=== PATIENT | male | born 1965 | race Caucasian/White ===

== ENCOUNTER 2019-12-25 05:58 | Day surgery (SDC) | payer OTHER, SELFPAY ==
[2019-12-24 15:17] VITALS: BMI 28.3
[2019-12-25 06:30] LABS: Glucose Point of Care 182 mg/dL (70-110)
--- NOTE | 2019-12-25 06:36 | ECG_ITS ---
Measurements Intervals [place] Rate: 62 P: 27 IA: 167 QRS: 24 QRSD: 102 T: 1 QT: 389 QTc: 397 SINUS RHYTHM WARNING: DATA QUALITY MAY AFFECT INTERPRETATION No previous ECG available for comparison Electronically Signed On 12-25-2019 17:07:52 CDT by Ebony Boles M.D. [email or web address]
--- NOTE | 2019-12-25 06:37 | ANES.PREANE2 ---
Pre-Anesthetic Assessment Pre-Anesthetic Assessment: Height/Weight: Height 1.8 m Weight 92.079 kg Preop Diagnosis: Headaches, r/o temporal arteritis Proposed Procedure: Operation Date: 12/25/19 07:10 Proposed Procedures p Temporal Artery Biopsy(Right) - Arash Morrow MD Last intake: Intake Last Liquid Date 12/24/19 Last Liquid Time 22:00 Last Solid Date 12/24/19 Last Solid Time 18:00 Social: Packs per day: 1 Pack years: 38 Comment: quit 2y Exam: Pre-Anes Outpt Exam: alert, oriented x 3, clear to auscultation bilaterally and regular rate & rhythm Airway: Submandibular: WNL Cervical ROM: WNL MP: 2 Dentition: Partials CV/HEM: CV/HEM: HTN Comments: rx'd 8y 2 blocks/2FOS without angina/RODRIGUEZ Metabolic: Metabolic: DM Comments: rx'd 2.5y, normally 100-130 Musc/skel: Musc/skel: Lower Back Pain Comments: nonradiating Anesthetic Plan: ASA status: 3 Anesthesia: General Data Anesthesia Other Labs: Laboratory Results - last 48 hr 12/25/19 06:26 POC Glucose 182 Cardiac Studies: No Data to Display
[2019-12-25 06:59] LABS: Basophils # 0.1 10^3/uL (0.0-0.1); Basophils % 0.7 %; Eosinophils % 0.2 %; Hematocrit 47.5 % (42.0-52.0); Hemoglobin 15.8 g/dL (11.7-16.6); Lymphocytes % 7.6 %; Mean Corpuscular HGB Conc 33.3 g/dL (30.0-36.0); Mean Corpuscular Hemoglobin 29.4 pg (28.0-34.0); Mean Corpuscular Volume 88.3 fL (80-94); Mean Platelet Volume 9.4 fL (7.4-10.4); Monocytes # 0.6 10^3/uL (0.2-0.9); Monocytes % 4.5 %; Neutrophils # 10.1 10^3/uL (1.8-7.7); Nucleated Red Blood Cells % 0 %; Platelet Count 416 10^3/cmm (130-400); Red Blood Count 5.38 10^6/uL (4.1-5.3); Red Cell Distribution Width 13.5 % (12.1-15.1); White Blood Count 12.6 10^3/uL (4.0-10.0)
[2019-12-25] MEDS: midazolam 1 mg/mL INJ 2 mL 2 MG IVP (07:02)
[2019-12-25] MEDS: sodium chloride 0.9% 1,000 ML 30 ML IV (07:02)
[2019-12-25 07:04] VITALS: BP 130/83; PULSE 70; RESP 18; TEMP 36.4; O2SAT 95
[2019-12-25 07:14] LABS: Anion Gap 14.6 (5-19); Blood Urea Nitrogen 12 mg/dL (6-20); Calcium 9.1 mg/dL (8.5-10.5); Carbon Dioxide 26 mmol/L (22-29); Chloride 98 mmol/L (98-107); Glomerular Filtration Rate 87.3 mL/min (90-130); Glucose 202 mg/dL (65-115); Osmolality Calculated 280 mOsm/kg (285-295); Potassium 4.6 mmol/L (3.5-5.1); Sodium 134 mmol/L (136-145)
[2019-12-25 07:28] LABS: Neutrophils % 84.8 %; Slide Review Slide Review Perform
[2019-12-25 08:23] VITALS: BP 129/80; PULSE 83; RESP 16; TEMP 36.1; O2SAT 94
[2019-12-25 08:25] VITALS: BP 135/82; PULSE 78; RESP 14; O2SAT 93
[2019-12-25 08:30] VITALS: BP 132/79; PULSE 78; RESP 18; TEMP 36.2; O2SAT 94
--- NOTE | 2019-12-25 08:30 | W.PM.OPSFHP ---
Same Day Surgery H&P Indication for Procedure/HPI DATE OF PROCEDURE: December 25, 2019 CHIEF COMPLAINT/INDICATIONFOR SURGICAL PROCEDURE: Headache PREOP DIAGNOSIS: Headaches, r/o temporal arteritis PLANNED PROCEDRUE: Operation Date: 12/25/19 07:10 Proposed Procedures p Temporal Artery Biopsy(Right) - Arash Morrow MD Medications/Allergies* Home Medications Medication Instructions Recorded Confirmed Type amlodipine 10 mg PO QPM 12/24/19 12/25/19 History metformin 500 mg PO QPM 12/24/19 12/25/19 History methylprednisolone [Medrol (Seng)] See Rx Instructions .ROUTE .COMPLEX 12/24/19 12/25/19 History metoprolol tartrate 50 mg PO QPM 12/24/19 12/25/19 History ondansetron HCl 4 mg PO Q6H 12/24/19 12/25/19 History Allergies/Adverse Reactions Allergy/AdvReac Type Severity Reaction Status Date / Time No Known Allergies Allergy Verified 12/24/19 11:38 Current Medications: Generic Name Dose Route Start Last Admin Trade Name Freq PRN Reason Stop Dose Admin Sodium Chloride 1,000 mls @ 30 mls/hr 12/25/19 07:00 12/25/19 07:02 Sodium Chloride 0.9% IV 12/26/19 06:59 30 mls/hr .Q24H AUDREY Administration Pertinent Exam Findings clear to auscultation bilaterally and operative site marked Recommendations Surgery/Procedure today Coding Level of Care Code Acute Administrator Of Home Health for Therese Merlos
--- NOTE | 2019-12-25 08:32 | W.PM.OPSUD ---
Surgery/Procedure H&P Update DATE OF PROCEDURE: December 25, 2019 DATE H&P PERFORMED: 12/23/19 PREOP DIAGNOSIS: Headaches, r/o temporal arteritis PLANNED PROCEDURE: Operation Date: 12/25/19 07:10 Proposed Procedures p Temporal Artery Biopsy(Right) - Arash Morrow MD
--- NOTE | 2019-12-25 08:33 | PM.OP ---
Operative Report Date of procedure: December 25, 2019 Pre-op Diagnosis: Headaches, r/o temporal arteritis Post-op diagnosis: same Post-op Findings: Same Procedure Done: Open biopsy, Right Temporal Artery Implants: None Specimens removed/disposition: Right Temporal artery Pathology: Right temporal artery Surgeon: Arash Morrow Anesthesia: General Estimated blood loss (mL): 5 IV fluids (mL): 300 Complications: None Condition: stable Disposition: PACU Brief History: New onset Headache Procedure: The patient was identified in the preoperative holding area was taken to the operating where he was placed on the operative table in supine position. Anesthesia was obtained with general endotracheal anesthesia and the table was turned 90 degrees to the patient's right. The patient's right zoroastrian was shaved and was then prepped and draped in the usual sterile fashion. The Doppler ultrasound was used to cordell out the path of the right temporal artery and the area of the right temporal artery was injected with a 50-50 mix of 1% lidocaine with 1: 100,000 epinephrine and half percent Marcaine plain. A vertical incision was then made over the right temporal artery with a 15 blade and then sharp scissors were used to dissect out the temporal artery. Ligaclips were used to clip the artery inferiorly superiorly and a 4 cm section of the right temporal artery was removed. At this point hemostasis was achieved with bipolar cautery. The wound was then closed with interrupted 4-0 Monocryl sutures in the subcutaneous tissues and a running 5-0 Prolene on the skin. The procedure was then terminated and control of the patient was returned to anesthesia where he underwent an uneventful reversal of anesthesia and extubation and was taken to the recovery room in stable condition. There were no operative or anesthetic complications.
[2019-12-25 08:35] VITALS: BP 145/84; PULSE 81; RESP 18; O2SAT 93
[2019-12-25 09:00] VITALS: BP 142/93; PULSE 72; RESP 18; O2SAT 93
[2019-12-25] MEDS: ondansetron 2 mg/ML SDV 2 mL 4 MG IVP (09:21)
== END 2019-12-25 10:15 | disposition home or self-care (01) ==
PROVIDERS: Family Provider Family Medicine; PCP Family Medicine; Visit Provider Specialist
PROC: (CPT 37609; principal; 2019-12-25 07:00)
DX: R51 Headache (principal); Z79.52 Long term (current) use of systemic steroids; E11.9 Type 2 diabetes mellitus without complications; Z79.84 Long term (current) use of oral hypoglycemic drugs; Z87.891 Personal history of nicotine dependence; I10 Essential (primary) hypertension
CPT/HCPCS: 37609; 12345; 36415; 36416; 80048; 82962; 85025; 88305; 93005; 96374; 96375; J0330; J0690; J2001; J2250; J2405; J2704; J3490; J7030

== ENCOUNTER → 2020-01-04 14:19 | Outpatient (BNVA) | payer OTHER, SELFPAY | PROVIDERS: Family Provider Family Medicine; PCP Family Medicine; Visit Provider Internal Medicine Rheumatology | DX: M79.10 Myalgia, unspecified site (principal); Z98.890 Other specified postprocedural states; I10 Essential (primary) hypertension; Z79.52 Long term (current) use of systemic steroids; M19.041 Primary osteoarthritis, right hand; M19.042 Primary osteoarthritis, left hand | CPT/HCPCS: 99204 ==

== ENCOUNTER 2020-02-02 09:08 | Emergency (ER) | payer OTHER, SELFPAY ==
[2020-02-02 09:16] VITALS: BP 151/92; PULSE 94; RESP 16; TEMP 36.4; O2SAT 95; BMI 27.8
--- NOTE | 2020-02-02 09:19 | XR_ITS ---
WS: [id number] FINGER RIGHT TECHNIQUE: 3 views of the right Fourth finger CLINICAL INFORMATION: 4th COMPARISON: None. FINDINGS: Soft tissue edema. Nondisplaced fracture distal fourth phalanx. XR/XR finger RT min 2V [id number] IMPRESSION: Nondisplaced fracture distal phalanx fourth finger
--- NOTE | 2020-02-02 09:42 | ED_ITS ---
HPI - Extremity Problem General: Chief complaint: Extremity Injury, Upper Stated complaint: WC RING FINGER ON RIGHT HAND SMASHED Time Seen by Provider: 02/02/20 09:18 History of Present Illness: HPI Narrative: 54-year-old male brought in he had a crush injury to his right distal fourth finger while at work. He did this yesterday. 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 He denies any other injuries there is no laceration his tetanus is up-to-date. Associated symptoms: Deny chest pain, fever(s) or rash Review of Systems Const: Denies: fever(s), chills, body aches, change in appetite, fatigue or malaise ENMT: Denies: throat pain, ear or mastoid pain, nasal discharge or nasal congestion Card: Denies: chest pain, edema, dyspnea on exertion or orthopnea Resp: Denies: dyspnea, productive cough or non-productive cough GI: Denies: abdominal pain, nausea, vomiting, hematemesis, coffee ground emesis, diarrhea, constipation, bloating, hematochezia or melena : Denies: flank pain, dysuria, urinary frequency or urinary urgency Skin/Breast: Denies: rash or pruritus PFSH ED PFSH: Medical History Chronic steroid use HTN (hypertension), benign Myalgia Surgical History History of temporal artery biopsy Family History Other Hypertension Denies family history of Rheumatoid arthritis Diabetes CAD (coronary artery disease) Systemic lupus erythematosus (SLE) in adult Cancer Stroke Social History Smoking and tobacco status: former smoker Alcohol intake: never History of recent travel: No Physical Exam Const: COMMON NORMALS: no acute distress GENERAL APPEARANCE: cooperative and comfortable ORIENTATION/CONSCIOUSNESS: Yes awake, Yes oriented to person, Yes oriented to place and Yes oriented to time HENMT: COMMON NORMALS: normocephalic, atraumatic, hearing grossly normal bilaterally and oropharynx normal HEAD & SCALP: normocephalic and atraumatic Resp: COMMON NORMALS: normal respiratory effort, No retractions, No use of accessory muscles and clear to auscultation bilaterally AUSCULTATION: clear to auscultation bilaterally Cardio: COMMON NORMALS: regular rate, regular rhythm and No murmurs present (Cardio) RATE: regular rate RHYTHM: regular rhythm Extremity: NARRATIVE EXTREMITY EXAM: Patient has ecchymosis and moderate swelling of the right fourth finger with no obvious deformity no laceration nail is intact no subungual hematoma most of the ecchymosis on the pad of the finger Neuro: SENSORIUM/ORIENTATION: Yes oriented to person, Yes oriented to place and Yes oriented to time Course Vital Signs: Vital signs: Vital Signs Temperature 97.5 F L 02/02/20 09:16 Pulse Rate 86 02/02/20 09:52 Respiratory Rate 16 02/02/20 09:52 Blood Pressure 151/92 02/02/20 09:52 Pulse Oximetry 96 02/02/20 09:52 MDM - Extremity (Nontraumatic) MDM Narrative: Medical decision making narrative: Splint of the right fourth finger. Follow-up with Ortho no use of the right hand until released by Ortho Discharge Plan Discharge Patient Disposition: Home, Self-Care Clinical Impression: Closed fracture of tuft of distal phalanx of finger Condition: Stable Prescriptions: New hydrocodone-acetaminophen 5-325 mg tablet 1 tab PO Q6H PRN (Reason: pain) Qty: 7 RF: 0 No Action prednisone 5 mg tablet 5 mg PO DAILY Qty: 180 RF: 1 amlodipine 10 mg Tablet 10 mg PO QPM RF: 0 metoprolol tartrate 50 mg Tablet 50 mg PO QPM RF: 0 methylprednisolone [Medrol (Seng)] 4 mg Tablets,Dose Pack See Rx Instructions .ROUTE .COMPLEX RF: 0 metformin 500 mg tablet 250 mg PO QPM RF: 0 ondansetron HCl 4 mg tablet 4 mg PO Q6H PRNRF: 0 Discharge Orders: Discharge Order (Routine); Ordered 02/02/20 Ordered By: Moe Mac Referrals: Aaron Barrera DO [Primary Care Provider] - Discharge Diet: Usual diet Discharge Activity: Limit activity as instructed Activity Restrictions/Additional Instructions: His management will call with referral to orthopedic surgery. Wear finger splint until released by surgery. Discharge Date/Time: 02/02/20 10:18 Coding Level of Care Code ED [employer] for Therese Merlos
[2020-02-02 09:52] VITALS: BP 151/92; PULSE 86; RESP 16; O2SAT 96
--- NOTE | 2020-02-03 08:59 | DCPLANNER ---
production team manager had message to schedule a follow up appointment for patient with ortho. production team manager called the ortho clinic, spoke with Pat, gave clinic patients information. production team manager was told that patients information would be printed and reviewed. Clinic will call family service caseworker and patient with appointment information.
--- NOTE | 2020-02-04 14:06 | DCPLANNER ---
Patient has a follow up appointment scheduled for , February 04, [address] at 2:[address] Melgoza. Clinic will patient with appointment information.
--- NOTE | 2020-03-03 14:06 | DCPLANNER ---
Patient did attend appointment scheduled for 02.04.20 with ortho.
== END 2020-02-02 10:18 | disposition home or self-care (01) ==
PROVIDERS: Emergency Provider Family Medicine; PCP Family Medicine
DX: S62.664A Nondisplaced fracture of distal phalanx of right ring finger, initial encounter for closed fracture (principal); X58.XXXA Exposure to other specified factors, initial encounter; Z79.84 Long term (current) use of oral hypoglycemic drugs; I10 Essential (primary) hypertension; Z87.891 Personal history of nicotine dependence
CPT/HCPCS: 12345; 29130; 73140; 99281; 99282; 99283

== ENCOUNTER → 2020-03-07 15:34 | Outpatient (BNVA) | payer OTHER, SELFPAY | PROVIDERS: PCP Family Medicine; Visit Provider Orthopaedic Surgery | DX: S62.634A Displaced fracture of distal phalanx of right ring finger, initial encounter for closed fracture (principal); X58.XXXA Exposure to other specified factors, initial encounter | CPT/HCPCS: 73140 ==